=== PATIENT | female | born 1980 | race Caucasian/White ===

== ENCOUNTER 2016-10-10 18:42 | Emergency (ER) | payer MEDICAID, OTHER ==
[2016-10-10 19:07] VITALS: RESP 18; TEMP 98.6
[2016-10-10 20:04] LABS: RBC URINE 2 /hpf (0-3); URINE BACTERIA RARE (<OCC); URINE BILIRUBIN NEGATIVE (NEGATIVE); URINE BLOOD NEGATIVE (NEGATIVE); URINE COLOR Yellow (YELLOW); URINE GLUCOSE (UA) NORMAL (Normal); URINE KETONE TRACE mg/dL (NEGATIVE); URINE LEUKOCYTE ESTERASE NEG Leu/uL (Negative); URINE PROTEIN NEGATIVE (NEGATIVE); URINE UROBILINOGEN NORMAL mg/dL (0.2-1.0); WBC URINE < 1 /hpf (0-5)
[2016-10-10 20:08] LABS: BASO # 0.1 K/uL (0.0-0.2); EOS # 0.1 K/uL (0.0-0.7); EOS % 0.6 % (0.0-4.0); MEAN PLATELET VOLUME 7.5 fL (7.2-11.7); MONO # 0.6 K/uL (0.0-0.8)
--- NOTE | 2016-10-10 20:10 | C.PDOC ---
History Of Present Illness Patient is a 36 year old female who presents to the ER with a complaint of a sharp right sided pelvic pain for the past 9 hours; associated with lightheadedness, nausea and hot flashes. Patient notes having swelling and redness to the right vulvar area. Denies vomiting, vaginal discharge or vaginal bleeding. Time Seen by Provider: 10/10/16 19:19 Chief Complaint (Nursing): Abdominal Pain History Per: Patient History/Exam Limitations: no limitations Onset/Duration Of Symptoms: Hrs (9) Current Symptoms Are (Timing): Still Present Location Of Pain/Discomfort: Other (Right sided pelvic) Radiation Of Pain To:: None Quality Of Discomfort: Sharp Associated Symptoms: Nausea, Other ((+) for lightheadedness and hot flashes. (- ) for vaginal discharge and vaginal bleeding.). denies: Vomiting Exacerbating Factors: None Alleviating Factors: None Recent travel outside of the [place]: No Abnormal Vaginal Bleeding: No Past Medical History Reviewed: Historical Data, Nursing Documentation, Vital Signs Vital Signs: Last Vital Signs Temp 98.6 F 10/10/16 19:04 Pulse 81 10/10/16 19:04 Resp 18 10/10/16 19:04 BP 131/81 10/10/16 19:04 Pulse Ox 98 10/10/16 21:26 - Medical History PMH: Bronchitis Surgical History: No Surg Hx - [facility] Procedures OTHER SKIN & SUBQ I D (08/11/14) TETANUS TOXOID ADMINIST (01/01/13) Family History: States: Unknown Family Hx - Social History Hx Tobacco Use: No Hx Alcohol Use: No Hx Substance Use: No - Immunization History Hx Tetanus Toxoid Vaccination: No Hx Influenza Vaccination: No Hx Pneumococcal Vaccination: No Review Of Systems Constitutional: Positive for: Other (Hot flashes) Gastrointestinal: Positive for: Nausea. Negative for: Vomiting Genitourinary: Positive for: Pelvic Pain (Right), Other (Right sided vulvar swelling/redness). Negative for: Vaginal Discharge, Vaginal Bleeding Neurological: Positive for: Other (Lightheadedness) Physical Exam - Physical Exam Additional Physical Exam Comments: Constitutional: No acute distress. Head: Normocephalic. Atraumatic. Eyes: PERRL. ENT: Moist mucous membranes. Neck: Supple. Cardiovascular: Regular rate. Radial pulses 2+ bilaterally. Chest: No tenderness. Respiratory: Clear to auscultation bilaterally. GI: Soft. Nontender. Nondistended. No Mcburney's point tenderness. Back: No CVA tenderness. Musculoskeletal: No tenderness or swelling of extremities. Pelvic: Erythema and induration to the right labia with central pimple, no fluctuance, feels empty. Skin: No rash. Neurologic: Alert, no focal deficit. ED Course And Treatment - Laboratory Results Result Diagrams: 10/10/16 20:05 10/10/16 20:05 O2 Sat by Pulse Oximetry: 98 (Room air) Pulse Ox Interpretation: Normal Medical Decision Making Medical Decision Making: Plan: * Blood work * Urinalysis * Transvaginal US Tranvaginal US: FINDINGS: Uterus/cervix: Echogenic linear focus in region of fundus, this is presumed to represent an IUD, if patient does have an IUD, there is concern for displacement and followup evaluation is recommended. Unremarkable as visualized. Normal endometrial stripe thickness, measured at 1 cm. No myometrial mass. Nabothian cyst. Right ovary: Unremarkable as visualized. No mass. Normal blood flow. Left ovary: Unremarkable as visualized. No mass. Normal blood flow. Free fluid: Small amount of free fluid. IMPRESSION: Echogenic linear focus in region of fundus, this is presumed to represent an IUD , if patient does have an IUD, there is concern for displacement as IUD is not seen in expected position and endometrium and followup evaluation is recommended. Small amount of free fluid. 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 Appears that IUD is within uterine wall but no evidence of perforation, abdominal exam is benign. I instructed the patient to follow up with OBGYN (has private OBGYN) within 24 hours. For labial induration, will advise warm compresses and prescribe antibiotics. I instructed the patient to return to the ER for worsening pain, fever, vomiting, swelling, or any other problem. Disposition - Disposition Referrals: Nikolay Leonard [Staff Provider] - Disposition: HOME/ ROUTINE Disposition Time: 21:33 Condition: STABLE Prescriptions: Cefixime [Suprax] 400 mg PO DAILY #7 capsule Clindamycin [Cleocin] 300 mg PO QID #28 cap Instructions: Bartholin Cyst (ED) Forms: Work Excuse - Clinical Impression Clinical Impression: Labial infection, IUD complication - Scribe Statement The provider has reviewed the documentation as recorded by the Scribhernan Pitts All medical record entries made by the Tinoibhernan were at my direction and personally dictated by me. I have reviewed the chart and agree that the record accurately reflects my personal performance of the history, physical exam, medical decision making, and the department course for this patient. I have also personally directed, reviewed, and agree with the discharge instructions and disposition.
[2016-10-10 20:11] LABS: BASO % 0.5 % (0.0-2.0); HEMATOCRIT 37.3 % (34.0-47.0); LYMPH # 1.4 K/uL (1.0-4.3); LYMPH % 8.8 % (20.0-40.0); MEAN CELL VOLUME 83.6 fL (81.0-99.0); MEAN CORPUSCULAR HEMOGLOBIN 27.3 pg (27.0-31.0); MEAN CORPUSCULAR HGB CONC 32.6 g/dL (33.0-37.0); PLATELET COUNT 337 K/uL (130-400); RED CELL DISTRIBUTION WIDTH 14.2 % (11.5-14.5); WHITE BLOOD COUNT 15.8 K/uL (4.8-10.8)
[2016-10-10 20:17] LABS: CHLORIDE 106 mmol/L (98-107); SODIUM 142 mmol/L (132-148)
[2016-10-10 20:18] LABS: POTASSIUM 3.6 mmol/L (3.6-5.2)
[2016-10-10 20:20] LABS: ALB/GLOB RATIO 1.3 (1.0-2.1); ALKALINE PHOSPHATASE 52 U/L (38-126); ALT/SGPT 22 U/L (9-52); AST/SGOT 27 U/L (14-36); BILIRUBIN,TOTAL 0.8 mg/dL (0.2-1.3); BLOOD UREA NITROGEN 15 mg/dL (7-17); CARBON DIOXIDE 24 mmol/L (22-30); GFR AFRICAN-AMERICAN > 60; GLUCOSE,RANDOM 99 mg/dL (65-105); TOTAL PROTEIN 7.6 g/dL (6.3-8.3)
[2016-10-10 20:21] LABS: CALCIUM 8.9 mg/dl (8.6-10.4)
[2016-10-10 20:38] LABS: EOSINOPHIL 1 % (0-4); NEUTROPHIL 81 % (50-75); TOTAL CELLS COUNTED 100
[2016-10-10 21:48] VITALS: BP 127/79; PULSE 66; O2SAT 100
--- NOTE | 2016-10-11 10:02 | US ---
HISTORY: R pelvic pain COMPARISON: None available. TECHNIQUE: Transabdominal and transvaginal pelvic ultrasound was performed. FINDINGS: UTERUS: Measures 8.7 x 4.8 x 5.3 cm. Anteverted, normal in size and appearance. No fibroid or other mass lesion seen. There is normal myometrial echotexture. ENDOMETRIUM: Measures 12 mm in diameter. The central endometrial echo complex is normal in appearance. Intrauterine device is partially visualized in the fundus rather than the endometrial cavity. CERVIX: There is a nabothian cyst in the cervix. RIGHT OVARY: Measures 1.6 x 1.2 x 1.9 cm. No solid mass. Normal flow. LEFT OVARY: Measures 3.2 x 1.2 x 2.5 cm. No solid mass. Normal flow. FREE FLUID: There is small amount of free fluid in the cul de sac, likely physiologic. OTHER FINDINGS: None. IMPRESSION: 1. Intrauterine device is identified in the fundus of the uterus rather than central endometrial cavity concerning for displaced intrauterine device. Clinical correlation and follow-up is advised. 2. Small amount of free fluid in the pelvis is likely physiologic.
== END 2016-10-10 21:48 | disposition home or self-care (01) ==
LOC: C.ER 18:42
DX: N76.2 Acute vulvitis (principal); T83.89XA Other specified complication of genitourinary prosthetic devices, implants and grafts, initial encounter; Y84.8 Other medical procedures as the cause of abnormal reaction of the patient, or of later complication, without mention of misadventure at the time of the procedure

== ENCOUNTER 2016-11-20 10:44 | Day surgery (SDC) | payer OTHER ==
[2016-11-20 11:08] VITALS: BMI 23.6
[2016-11-20] MEDS ORDERED: Lactated Ringer's 1,000 ML IV ONE ×3 (12:13→14:36)
[2016-11-20] MEDS ORDERED: cefOXitin IV 1 gm in Dextrose 1 GM/50 ML BAG IVPB ONE (12:24)
[2016-11-20] MEDS ORDERED: Midazolam 2 MG/2 ML VIAL ONE (12:45)
[2016-11-20] MEDS ORDERED: Propofol 10 mg/ml Inj (20 ML) ONE ×3 (12:45→13:24)
--- NOTE | 2016-11-20 14:01 | PCM.SURG1 ---
Surgeon's Initial Post Op Note - Surgeon's Notes Surgeon: Dr Leonard Dry Talc Racker: None Type of Anesthesia: General Endo Anesthesia Administered By: JULIA Peter Pre-Operative Diagnosis: 36yo with retained IUD Operative Findings: 8wks sized anteverted uterus, No IUD seen in the intrauterine cavity. The fundal area was probed for the presence of the IUD but was found not to be present. IVF- 400mls. EBL. 20ml. UO -50mls Post-Operative Diagnosis: Same as Preop Operation Performed: Diagnostic hysteroscopy Specimen/Specimens Removed: None Estimated Blood Loss: EBL {In ML}: 20 Blood Products Given: N/A Post-Op Condition: Good Date of Surgery/Procedure: 11/20/16 Time of Surgery/Procedure: 14:02
[2016-11-20 16:31] VITALS: BP 114/78; PULSE 76; RESP 18; TEMP 97.7; O2SAT 99
--- NOTE | 2016-11-22 01:31 | OP ---
PREOPERATIVE DIAGNOSIS: A 36-year-old with a retained intrauterine device with lost IUD Strings. POSTOPERATIVE DIAGNOSIS: No intrauterine device found in the intrauterine cavity. PROCEDURE: Diagnostic hysteroscopy. SURGEON: Nikolay Leonard MD STAFF INTERNIST OFFICE BASED ONLY: There was no engineer second assistant. TYPE OF ANESTHESIA: General endotracheal. ANESTHESIA ADMINISTERED BY: Brittani DUMONT. FINDINGS: An 8 weeks size anteverted uterus with a fluffy endometrial tissue on hysteroscopy. The fundal area of the uterus was probed for the presence of IUD in the intrauterine cavity. IUD was not located. Cervical canal appeared normal. IV FLUID INTAKE: About 400 mL. ESTIMATED BLOOD LOSS: 20 mL URINE OUTPUT: 50 mL COMPLICATIONS: There were no complications. DESCRIPTION OF PROCEDURE: After obtaining informed consent from the patient, the patient was sent to the OR with IV running. The patient was placed in a supine position on the OR table and after adequate general anesthesia, the patient was put in dorsal lithotomy position. The patient was then prepped and draped in an usual sterile fashion. An urinary bladder was drained using a straight catheter with output of about 50 mL. The posterior wall of the vagina was depressed using a weighted-speculum and anterior wall of the vagina was elevated with an L-shaped retractor to expose the cervix. The anterior lip of the cervix was held with a single-tooth tenaculum. The uterus was then sounded to a depth of about 7 cm. The cervical canal was dilated using Hegar's dilator of about 8 mm dilatation. The hysteroscope was introduced carefully with a water running with an inflow and output. The endometrial cavity was viewed for the presence of the IUD. There were no IUD found. The fundal area of the endometrial cavity was probed with a hysteroscopic grasper, but no definite foreign material was found. Curettage of endometrial cavity was also performed in addition in an attempt to dislodge any hidden IUD, but nothing was found. A repeat Hysteroscopy was performed after curettage. Once the procedure was completed, all instruments were taken out of the vagina. The patient was placed in supine position and was sent to the recovery room awake and in stable condition. All counts of instruments were correct x3. Nikolay Leonard MD MTDD
== END 2016-11-20 16:30 | disposition home or self-care (01) ==
LOC: C.SDS 10:44
PROVIDERS: ATTEND Obstetrics & Gynecology
DX: T83.89XA Other specified complication of genitourinary prosthetic devices, implants and grafts, initial encounter (principal)
CPT/HCPCS: 58555; J0694; J1885; J2001; J2250; J2270; J2405; J2704; J3010; J7120